=== PATIENT | female | born 2000 | race Caucasian/White ===

== ENCOUNTER 2019-07-01 15:23 | Outpatient (CLI) | payer BC, SELFPAY ==
--- NOTE | ~2019-07-01 | MR_ITS ---
EXAMINATION: MR brain/brain stem wo con EXAM DATE: 07/01/2019 16:04 INDICATION: Fainting. Syncope. New acute onset headaches. TECHNIQUE: Magnetic resonance imaging (MRI) of the brain/brain stem obtained without contrast. Zaheeritt al T1, axial diffusion, gradient echo (T2*), T1, T2, FLAIR sequences obtained. There is no prior st udy for comparison. FINDINGS: There are no areas of restricted diffusion to suggest acute infarction. There is no acute hemorrhage seen on the T2*, a hemosiderin sensitive sequence. No intraparenchymal brain mass. The ve ntricles are normal in size. There are no extra-axial collections. Flow voids are seen in the cereb ral arteries on the T2-weighted sequences consistent with their expected patency. The orbits are unr emarkable. Soft tissue is unremarkable. IMPRESSION: 1. Unremarkable brain MRI examination. Reviewed, dictated and finalized at location B. PILOT/NAVIGATOR/DDS OPERATOR
== END 2019-07-01 15:24 ==
DX: R51 Headache (principal)
CPT/HCPCS: 70551

== ENCOUNTER 2020-08-31 13:06 | Emergency (ER) | payer MEDICAID, SELFPAY ==
[2020-08-31 13:15] VITALS: BP 135/73; PULSE 85; RESP 20; TEMP 36.7; O2SAT 97
--- NOTE | 2020-08-31 13:24 | ED.GENADULT ---
HPI - General Adult General Chief complaint: Dizziness Stated complaint: low blood pressure Time Seen by Provider: 08/31/20 13:24 Related Data Allergies Allergy/AdvReac Type Severity Reaction Status Date / Time No Known Drug Allergies Allergy Verified 03/21/11 20:27
--- NOTE | 2020-08-31 13:33 | ED.DIZZY ---
HPI - Dizziness General Chief Complaint: Dizziness Stated Complaint: low blood pressure Time Seen by Provider: 08/31/20 13:24 Source: patient, family and RN notes reviewed Mode of arrival: ambulatory Limitations: no limitations History of Present Illness MD elicited complaint: dizziness and lightheadedness Onset (ago): day(s) (2) Timing: gradual onset and intermittent Severity: moderate Description: lightheadedness History of similar symptoms: Yes Exacerbating factors: nothing Relieving factors: lying down Associated symptoms: denies other symptoms Related Data Home Medications Medication Instructions Recorded Confirmed alprazolam [Xanax] 0.25 mg PO BID PRN 08/31/20 08/31/20 bupropion HCl [Wellbutrin SR] 100 mg PO DAILY 08/31/20 08/31/20 levonorgestrel-ethinyl estrad 1 tablet PO DAILY 08/31/20 08/31/20 [Altavera (28)] sertraline 100 mg PO DAILY 08/31/20 08/31/20 trazodone 100 mg PO HS PRN 08/31/20 08/31/20 Allergies Allergy/AdvReac Type Severity Reaction Status Date / Time No Known Drug Allergies Allergy Verified 03/21/11 20:27 Review of Systems Review of Systems: All systems reviewed & are unremarkable except as noted in HPI and below PMFSH Past Medical History Medical History (Updated 08/31/20 @ 14:53 by Seb Levin MD) Anxiety and depression Surgical History Surgical History (Updated 08/31/20 @ 13:44 by Seb Levin MD) No pertinent past surgical history Social History Social History (Updated 08/31/20 @ 13:43 by Seb Levin MD) Tobacco type: e-cigarettes/vaping Alcohol intake: current Alcohol use details: occasional Substance use: never Exam Const: General: healthy appearing, no acute distress and alert Nutritional Appearance: thin Orientation/consciousness: patient oriented x3 Other: female nurse in room during examination. HENMT: Head: normal to inspection Ears: external ear abnormal Face and sinus: normal facial exam Mouth: Yes moist mucous membranes Eyes: Conjunctivae: conjunctivae normal Pupils: Equal, round and reactive pupils present EOM: EOMs intact bilaterally Neck: Neck: normal visual inspection Resp: Effort & Inspection: normal respiratory effort Auscultation: clear to auscultation bilaterally Cardio: Rate: regular rate Rhythm: regular rhythm GI: GI Palp: Yes Soft to palpation and No Tenderness to palpation present (GI) Auscultation: normal bowel sounds Back/Spine/Pelvis: Cervical Spine: cervical ROM normal Thoracic/Lumbar Spine: thoraco-lumbar ROM normal Skin: General skin exam: normal color Rashes: no rashes Wounds: no wounds Neuro: General: patient oriented x3, moves all extremities, no meningeal signs and no focal motor deficits Speech: normal speech Gait exam (Neuro): Normal gait present Extrem: General: normal to inspection and no clubbing, cyanosis or edema Psych: Appearance: grossly normal and well kempt Mental Status: mental status grossly normal Affect: normal affect Attitude: cooperative Thought content: Yes Normal thought content present Course Vital Signs Vital signs: Vital Signs Temperature 36.7 C 08/31/20 13:15 Pulse Rate 85 08/31/20 13:15 Respiratory Rate 20 08/31/20 13:15 Blood Pressure 135/73 08/31/20 13:15 Pulse Oximetry 97 08/31/20 13:15 Temperature 36.7 C 08/31/20 13:15 Pulse Rate 85 08/31/20 13:15 Respiratory Rate 20 08/31/20 13:15 Blood Pressure 135/73 08/31/20 13:15 Pulse Oximetry 97 08/31/20 13:15 MDM - Dizziness Lab Data Result diagrams: 08/31/20 13:56 08/31/20 13:56 Labs: Lab Results 08/31/20 08/31/20 08/31/20 Range/Units 13:44 13:45 13:56 WBC 6.4 (4.8-10.8) K/mm3 RBC 4.35 (4.20-5.40) M/mm3 Hgb 12.6 (12.0-15.0) g/dL Hct 38.4 (35.0-49.0) % MCV 88.3 (78.0-102.0) fL MCH 29.0 (27.0-31.0) pg MCHC 32.8 (32.0-36.0) g/dL RDW 11.9 (11.6-14.4) % Plt Count 255 (150-420) K/mm3
[2020-08-31 13:54] LABS: Bilirubin Urine Negative (Negative); Blood Urine Negative (Negative); Color Urine Yellow (Yellow); Glucose Urine UA Negative (Negative); Ketones Urine Negative (Negative); Leukocyte Esterase Ur Negative LEU/UL (Negative); Nitrate Urine Negative (Negative); Protein Urine Negative (Negative); Specific Grav Ur >= 1.030 (1.010-1.020); Urobilinogen Urine 0.2 mg/dL (0.2-1.0)
[2020-08-31 13:58] LABS: Add Urine Microscopic? NO; Appearance Urine Clear (Clear)
[2020-08-31 13:59] LABS: Pregnancy On Board Control Positive; Urine Pregnancy Test Negative
[2020-08-31 14:01] LABS: Amphetamine Screen Urine Negative (Negative); Barbiturate Screen Urine Negative (Negative); Benzodiazepines Screen Urine Negative (Negative); Cannabinoid Screen Urine Negative (Negative); Cocaine Screen Urine Negative (Negative); Methadone Screen Urine Negative (Negative); Opiate Screen Urine Negative (Negative); Phencyclidine Screen Urine Negative (Negative)
[2020-08-31 14:02] LABS: Basophils Absolute Auto 0.02 K/mm3 (0.00-0.10); Basophils Percent Auto 0.3 % (0.0-1.0); Eosinophils Absolute Auto 0.11 K/mm3 (0.02-0.50); Eosinophils Percent Auto 1.7 % (1.0-6.0); Hematocrit 38.4 % (35.0-49.0); Hemoglobin 12.6 g/dL (12.0-15.0); Immature Granulocyte Absolute 0.01 K/mm3 (0.00-0.00); Immature Granulocyte Percent A 0.2 % (0.0-0.0); Lymphocytes Absolute Auto 1.69 K/mm3 (1.10-4.50); Lymphocytes Percent Auto 26.4 % (18.0-42.0); Mean Corpuscular HGB Conc 32.8 g/dL (32.0-36.0); Mean Corpuscular Volume 88.3 fL (78.0-102.0); Mean Platelet Volume 10.6 fl (9.2-11.8); Monocytes Absolute Auto 0.47 K/mm3 (0.10-0.90); Monocytes Percent Auto 7.3 % (2.0-11.0); Neutrophils Absolute Auto 4.1 K/mm3 (1.7-7.2); Neutrophils Percent Auto 64.1 % (50.0-70.0); Platelet Count Result 255 K/mm3 (150-420); Red Blood Count 4.35 M/mm3 (4.20-5.40); Red Cell Distribution Width 11.9 % (11.6-14.4); White Blood Count 6.4 K/mm3 (4.8-10.8)
[2020-08-31 14:24] LABS: Alanine Aminotransferase 14 U/L (14-59); Albumin Level 3.4 g/dL (3.4-5.0); Alkaline Phosphatase 60 U/L (46-116); Anion Gap 9 mmol/L (8-16); Aspartate Amino Transferase < 10 U/L (15-37); Bilirubin,Total 0.3 mg/dL (0.00-1.00); Blood Urea Nitrogen 10 mg/dL (7-18); Calcium 8.4 mg/dL (8.5-10.1); Carbon Dioxide 27 mmol/L (21-32); Chloride 104 mmol/L (98-108); Estimated Glomerular Filt Rate > 60; Glucose 87 mg/dL (70-99); Magnesium 1.9 mg/dL (1.8-2.4); Osmolality Calculated 288 mOsm/kg (285-295); Potassium 3.7 mmol/L (3.5-5.1); Sodium 140 mmol/L (136-145); Thyroid Stimulating Hormone 0.76 uIU/mL (0.36-3.74); Total Protein 6.7 g/dL (6.4-8.2)
[2020-08-31 14:58] VITALS: BP 113/75
== END 2020-08-31 15:00 | disposition home or self-care (01) ==
PROVIDERS: Emergency Provider Emergency Medicine; PCP Physician Assistant
DX: H81.10 Benign paroxysmal vertigo, unspecified ear (principal)
CPT/HCPCS: 36415; 80053; 80307; 81003; 81025; 83735; 84443; 85025; 99283

== ENCOUNTER 2020-10-03 21:22 | Emergency (ER) | payer MEDICAID, SELFPAY ==
[2020-10-03 22:00] VITALS: BP 114/83; PULSE 88; RESP 20; TEMP 37.1; O2SAT 98
--- NOTE | 2020-10-03 22:09 | ED.GENADULT ---
HPI - General Adult General Chief complaint: Extremity Injury, Lower Stated complaint: lower back pain Source: patient Mode of arrival: ambulatory Limitations: no limitations History of Present Illness HPI narrative: Kassi is a 20F with a PMH of anxiety/depression and previous hip/SI joint pain that came to the ED with instability and pain in her posterior hip. She works as a summons server. Lately with increased activity she has pain and it feels like it is popping in and out. She has went to he chiropractor but has not got much relief. No recent falls or trauma. Related Data Home Medications Medication Instructions Recorded Confirmed alprazolam [Xanax] 0.25 mg PO BID PRN 08/31/20 08/31/20 bupropion HCl [Wellbutrin SR] 100 mg PO DAILY 08/31/20 08/31/20 levonorgestrel-ethinyl estrad 1 tablet PO DAILY 08/31/20 08/31/20 [Altavera (28)] sertraline 100 mg PO DAILY 08/31/20 08/31/20 trazodone 100 mg PO HS PRN 08/31/20 08/31/20 Allergies Allergy/AdvReac Type Severity Reaction Status Date / Time No Known Drug Allergies Allergy Unknown Verified 10/03/20 22:10 Review of Systems Constitutional: Constitutional: Reports no additional constitutional complaints Eyes: Eyes: Reports no additional eye complaints ENT: Reports system reviewed and no additional complaints, except as documented Cardiovascular: Cardiovascular: Reports no additional cardiovascular complaints Respiratory: Respiratory: Reports no additional respiratory complaints Gastrointestinal: Gastrointestinal: Reports no additional gastrointestinal complaints Genitourinary: Genitourinary: Reports no additional female genitourinary complaints Musculoskeletal: Musculoskeletal: Reports as per HPI Integumentary/Breasts: Skin/Breast: Reports system reviewed and no additional complaints, except as docu Neurologic: Reports system reviewed and no additional complaints, except as documented Psychiatric: Psychiatric: Reports no additional psychiatric complaints Endocrine: Endocrine: Reports no additional endocrine complaints Hematologic/Lymphatic: Hematologic/Lymphatic: Reports no additional hematologic/lymphatic complaints Allergic/Immunologic: Allergic/Immunologic: Reports no additional allergic/immunologic complaints [facility] Past Medical History Medical History Anxiety and depression Surgical History Surgical History No pertinent past surgical history Social History Social History Tobacco type: e-cigarettes/vaping Alcohol intake: current Substance use: never Gender identity (if verbalized by the patient): Female Exam Const: General: no acute distress and alert Orientation/consciousness: patient oriented x3 Limitations: No altered mental status HENMT: Head: normal to inspection Other: atraumatic Eyes: Conjunctivae: conjunctivae normal Pupils: Equal, round and reactive pupils present Neck: Neck: normal visual inspection Chest: Chest palpation & inspection: normal inspection of the chest Resp: Effort & Inspection: normal respiratory effort, not labored and not tachypneic Cardio: Rate: regular rate Rhythm: regular rhythm Skin: General skin exam: normal color Rashes: no rashes Neuro: General: patient oriented x3 and moves all extremities Speech: normal speech Extrem: General: normal to inspection Other: 5/5 strength in all major muscle groups in the lower extremities bilaterally. +HAWK test. Significant TTP over the right SI joint Psych: Appearance: grossly normal Mental Status: mental status grossly normal Affect: normal affect Course Course Emergency Course: Given toradol for pain Vital Signs Vital signs: Vital Signs Temperature 98.8 F 10/03/20 22:00 Pulse Rate 88 10/03/20 22:00 Respiratory Rate 20 10/03/20 22:00 Blood Pressure 114/83 05
[2020-10-03] MEDS: KETOROLAC 30 MG/ML VIAL (*BKC) IM (22:15)
== END 2020-10-03 22:28 | disposition home or self-care (01) ==
PROVIDERS: Emergency Provider Family Medicine; PCP Family Medicine
DX: M53.3 Sacrococcygeal disorders, not elsewhere classified (principal)
CPT/HCPCS: 96372; 99283; J1885

== ENCOUNTER 2021-10-03 13:16 | Emergency (ER) | payer BC, MEDICAID, SELFPAY ==
[2021-10-03] VITALS (14 sets, daily range): BP systolic 131–141; BP diastolic 72–78; PULSE 79–95; RESP 15–25; TEMP 36.7; O2SAT 78–100
--- NOTE | 2021-10-03 13:30 | ECG_ITS ---
Measurements Intervals [place] Rate: 92 P: 70 IA: 123 QRS: 70 QRSD: 94 T: 61 QT: 358 QTc: 443 Interpretive Statements SINUS RHYTHM NORMAL ECG Electronically Signed On 10-03-2021 16:00:02 CDT by Garrett Millan D.O.
[2021-10-03 13:52] LABS: Basophils Percent Auto 0.3 % (0.2-1.2); Eosinophils Absolute Auto 0.1 K/mm3 (0-0.3); Eosinophils Percent Auto 1.2 % (0-4.4); Hemoglobin 13.6 g/dL (12.0-15.0); Immature Granulocyte Absolute 0.02 K/mm3 (0.00-0.031); Immature Granulocyte Percent A 0.3 % (0-0.5); Lymphocytes Absolute Auto 1.57 K/mm3 (0.9-3.2); Lymphocytes Percent Auto 21.2 % (18.3-44.2); Mean Corpuscular HGB Conc 32.4 g/dl (32-36); Mean Corpuscular Hemoglobin 28.9 pg (26-34); Mean Corpuscular Volume 89.4 fl (80-100); Mean Platelet Volume 10.3 fl (7.4-10.4); Monocytes Absolute Auto 0.7 K/mm3 (0.1-0.6); Monocytes Percent Auto 9.7 % (2.6-8.5); Neutrophils Percent Auto 67.3 % (45.5-73.1); Platelet Count Result 286 k/mm3 (150-375); Red Cell Distribution Width 12.5 % (11.5-14.5); White Blood Count 7.4 K/mm3 (4.5-10.0)
[2021-10-03 14:01] LABS: Alanine Aminotransferase 14 U/L (6-35); Albumin Level 4.5 g/dL (3.5-5.1); Alkaline Phosphatase 53 U/L (38-126); Anion Gap 10 mmol/L (8-16); Aspartate Amino Transferase 23 U/L (14-36); Bilirubin,Total 0.4 mg/dL (0.2-1.3); Blood Urea Nitrogen 12 mg/dL (7-17); Calcium 8.9 mg/dL (8.4-10.2); Carbon Dioxide 23 mmol/L (22-30); Chloride 104 mmol/L (98-107); Estimated CRCL calculation 146 ml/min; Estimated Glomerular Filt Rate > 60; Glucose 97 mg/dL (65-110); Sodium 137 mmol/L (137-145)
[2021-10-03 14:08] LABS: Add Urine Microscopic? NO; Appearance Urine Clear (Clear); Bilirubin Urine Negative (Negative); Blood Urine Negative (Negative); Color Urine Yellow (Yellow); Glucose Urine UA Negative (Negative); Ketones Urine Negative (Negative); Leukocyte Esterase Ur Negative LEU/UL (Negative); Nitrate Urine Negative (Negative); Protein Urine Negative (Negative); Specific Grav Ur <= 1.005 (1.001-1.035); Urobilinogen Urine 0.2 mg/dL (<2.0)
--- NOTE | 2021-10-03 14:15 | ED.SYNCOPE ---
HPI - Syncope General Chief Complaint: Syncope Stated Complaint: syncope Time Seen by Provider: 10/03/21 13:32 History of Present Illness HPI narrative: 21-year-old female presents to the emergency room following a syncopal event. Patient states that she started taking amlodipine this morning for patient denies any illicit drug use. Denies fever. Related Data Home Medications Medication Instructions Recorded Confirmed alprazolam [Xanax] 0.5 mg PO BID PRN 08/31/20 10/03/20 bupropion HCl [Wellbutrin SR] 150 mg PO DAILY 08/31/20 10/03/20 levonorgestrel-ethinyl estrad 1 tablet PO DAILY 08/31/20 10/03/20 [Altavera (28)] sertraline [Zoloft] 100 mg PO DAILY 08/31/20 10/03/20 trazodone 100 mg PO HS PRN 08/31/20 10/03/20 Allergies Allergy/AdvReac Type Severity Reaction Status Date / Time No Known Drug Allergies Allergy Unknown Verified 10/03/20 22:10 Review of Systems Review of Systems: CONSTITUTIONAL: Denies fever, chills, or sweats. EYES: Denies visual changes, redness, or discharge. ENT: Denies rhinorrhea, congestion, sore throat, or otalgia. CARDIOVASCULAR: Denies chest pain, palpitations, or edema. RESPIRATORY: Denies cough or dyspnea. GASTROINTESTINAL: Denies abdominal pain, nausea, vomiting, or diarrhea. GENITOURINARY: Denies dysuria or hematuria. SKIN: Denies rash or itching. MUSCULOSKELETAL: Denies back pain, joint pain, or myalgia. NEUROLOGIC: Denies headache, numbness, dizziness, or weakness. PSYCHIATRIC: Denies anxiety or depression. [facility] Past Medical History Medical History Anxiety and depression Surgical History Surgical History No pertinent past surgical history Social History Social History Tobacco type: e-cigarettes/vaping Alcohol intake: current Alcohol use details: occasional Substance use: never Gender identity (if verbalized by the patient): Female Exam Narrative: GENERAL: Well-appearing, well-nourished, and in no acute distress. HEAD: Normocephalic, atraumatic. EYES: PERRLA and EOMI. NECK: Supple. No adenopathy or masses. No carotid bruits or JVD CHEST: Clear to auscultation. No respiratory distress. No wheezes rales or rhonchi HEART: Regular rate and rhythm. No murmur heard. Normal peripheral pulses. ABDOMEN: Soft, nontender, nondistended, normal active bowel sounds. EXTREMITIES: Normal range of motion. No edema. SKIN: Warm, dry, no rash. NEURO: No focal deficits. Alert and oriented x3. PSYCH: Normal mood and affect. Course Vital Signs Vital signs: Vital Signs Temperature 36.7 C 10/03/21 13:26 Pulse Rate 95 10/03/21 13:26 Respiratory Rate 20 10/03/21 13:26 Blood Pressure 131/78 10/03/21 13:26 Pulse Oximetry 100 10/03/21 13:26 Temperature 36.7 C 10/03/21 13:26 Pulse Rate 95 10/03/21 13:26 Respiratory Rate 20 10/03/21 13:26 Blood Pressure 131/78 10/03/21 13:26 Pulse Oximetry 100 10/03/21 13:26 MDM - Syncope MDM Narrative Medical decision making narrative: 21-year-old female presented to the emergency room following a syncopal event. Patient states that she began taking amlodipine this morning for Raynaud's phenomenon. Patient states that she did not monitor her blood pressure before and after starting the medication. CBC and C MP unremarkable. Troponin TSH within normal limits. Urine shows no evidence of urinary tract infection. EKG showed normal sinus rhythm with no ectopy. Patient likely experiencing adverse reaction to amlodipine Medical Records Attestation: I reviewed the patient's medical records. Lab Data Attestation: I reviewed the patient's lab results. Result diagrams: 10/03/21 11:15 10/03/21 11:15 Labs: Lab Results 10/03/21 10/03/21 10/03/21 Range/Units 11:15 11:15 14:00 WBC 7.4 (4.5-10.0) K/mm3 RBC
[2021-10-03] MEDS: SODIUM CHLORIDE 0.9% IV 1,000 ML 999 ML IV CONT (14:20)
[2021-10-03 14:24] LABS: Amphetamine Screen Urine Negative (Negative); Barbiturate Screen Urine Negative (Negative); Benzodiazepines Screen Urine Negative (Negative); Cannabinoid Screen Urine Positive (Negative); Cocaine Screen Urine Negative (Negative); Methadone Screen Urine Negative (Negative); Opiate Screen Urine Negative (Negative); Phencyclidine Screen Urine Negative (Negative)
[2021-10-03 14:33] LABS: CRP < 0.5 mg/dL (<1.0)
[2021-10-03 15:02] LABS: Thyroid Stimulating Hormone 0.596 uIU/mL (0.465-4.680)
== END 2021-10-03 15:50 | disposition home or self-care (01) ==
PROVIDERS: Emergency Medicine; Emergency Provider Nurse Practitioner Family; PCP Family Medicine
DX: R55 Syncope and collapse (principal); I73.00 Raynaud's syndrome without gangrene; F41.9 Anxiety disorder, unspecified; F32.A Depression, unspecified; F17.290 Nicotine dependence, other tobacco product, uncomplicated; T46.1X5A Adverse effect of calcium-channel blockers, initial encounter
CPT/HCPCS: 36415; 80053; 80307; 81003; 81025; 84443; 85025; 86140; 93005; 96360; 99284; J7030

== ENCOUNTER 2022-08-02 21:58 | Emergency (ER) | payer BC, MEDICAID, SELFPAY ==
--- NOTE | ~2022-08-02 | XR_ITS ---
XR foot LT 2V 08/02/2022 22:25 INDICATION: Pain in left first toe PROCEDURE: 2 views left foot COMPARISON: No prior studies for comparison. FINDINGS: Fracture, dislocation or subluxation is not identified. Lisfranc joint intact. The soft tis sues appear within normal limits. No foreign bodies are identified. IMPRESSION: 1: NO ACUTE BONE OR JOINT ABNORMALITY IDENTIFIED. Reviewed, dictated and finalized at location A.
[2022-08-02 22:01] VITALS: BP 132/80; PULSE 100; RESP 20; TEMP 37; O2SAT 100
--- NOTE | 2022-08-02 22:12 | ED.LOWEXIN ---
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 complaint: foot injury Onset (ago): hour(s) Place: school Severity: moderate Severity scale (1-10): 6 Relieving factors: nothing Exacerbating factors: movement and palpation Context: direct blow Related Data Home Medications Medication Instructions Recorded Confirmed alprazolam 0.25 mg tablet (Xanax) 0.5 mg PO BID PRN Anxiety 08/31/20 08/02/22 bupropion HCl 100 mg tablet,12 hr 150 mg PO DAILY 08/31/20 08/02/22 sustained-release (Wellbutrin SR) levonorgestrel 0.15 mg-ethinyl 1 tablet PO DAILY 08/31/20 08/02/22 estradiol 0.03 mg tablet (Altavera (28)) sertraline 100 mg tablet (Zoloft) 100 mg PO DAILY 08/31/20 08/02/22 trazodone 100 mg tablet 100 mg PO HS PRN Sleep 08/31/20 08/02/22 Allergies Allergy/AdvReac Type Severity Reaction Status Date / Time No Known Drug Allergies Allergy Unknown Verified 10/03/20 22:10 Review of Systems Review of Systems: All systems reviewed & are unremarkable except as noted in HPI and below PMFSH Past Medical History Medical History Anxiety and depression Surgical History Surgical History No pertinent past surgical history Social History Social History Tobacco type: e-cigarettes/vaping Alcohol intake: current Alcohol use details: occasional Substance use: never Gender identity (if verbalized by the patient): Female Exam Const: General: healthy appearing Nutritional Appearance: well nourished Orientation/consciousness: patient oriented x3 Limitations: no limitations HENMT: Head: normal to inspection Face and sinus: normal facial exam Eyes: Conjunctivae: conjunctivae normal Pupils: Equal, round and reactive pupils present EOM: EOMs intact bilaterally Neck: Neck: normal visual inspection Chest: Chest palpation & inspection: normal inspection of the chest Resp: Effort & Inspection: normal respiratory effort Auscultation: clear to auscultation bilaterally Cardio: Rate: regular rate Rhythm: regular rhythm GI: GI Palp: Yes Soft to palpation Skin: Wounds: wounds noted Other: Erythema around bilateral large toe nails Neuro: General: patient oriented x3 Cranial nerves: Yes Nystagmus not present Extrem: General: normal to inspection Psych: Mental Status: mental status grossly normal Affect: normal affect Course Course Emergency Course: X rays reviewed, patient was given a shot of 60mg IM Toradol antibiotic by mouth and triple antibiotic ointment were given. Vital Signs Vital signs: Vital Signs Temperature 37.0 C 08/02/22 22:01 Pulse Rate 100 08/02/22 22:01 Respiratory Rate 20 08/02/22 22:01 Blood Pressure 132/80 08/02/22 22:01 Pulse Oximetry 100 08/02/22 22:01 Oxygen Delivery Room Air 08/02/22 22:01 Temperature 37.0 C 08/02/22 22:01 Pulse Rate 100 08/02/22 22:01 Respiratory Rate 20 08/02/22 22:01 Blood Pressure 132/80 08/02/22 22:01 Pulse Oximetry 100 08/02/22 22:01 Oxygen Delivery Room Air 08/02/22 22:01 Critical Care Time Critical Care Time Critical Care Time: No Discharge Plan Discharge Clinical Impression: Paronychia Celluli
[2022-08-02] MEDS: NEOMYCIN/POLYMYXIN/BACITRACIN OINTMENT PACKET 1 PACKET TOPICAL (22:20)
[2022-08-02] MEDS: KETOROLAC (*BKC) 60 MG/2 ML VIAL IM (22:20)
[2022-08-02] MEDS: AMOXICILLIN 500 MG CAPSULE PO (22:20)
[2022-08-02 22:29] VITALS: BP 121/90; PULSE 90; RESP 20; TEMP 37.2; O2SAT 100
== END 2022-08-02 22:31 | disposition home or self-care (01) ==
PROVIDERS: Emergency Provider Emergency Medicine; PCP Family Medicine
DX: L03.032 Cellulitis of left toe (principal); F41.9 Anxiety disorder, unspecified; F32.A Depression, unspecified; F17.290 Nicotine dependence, other tobacco product, uncomplicated
CPT/HCPCS: 73620; 96372; 99283; A9270; J1885

== ENCOUNTER 2022-09-30 08:55 | Outpatient (RCR) | payer MEDICAID, SELFPAY ==
--- NOTE | 2022-09-30 13:06 | PTOPEVAL1 ---
Assessment and note entered by Yon Ibanez Evaluation Information Assessment Status Evaluation Diagnosis chronic bilateral hip pain Onset 09/25/22 Subjective Information Pt. reports that she has been having on/off hip pain for a couple years. She reports that she has recently been diagnosed with ADRIANO. She reports that pain is worst in the morning. She reports that she will pop her hips sitting at the EOB to start each morning. She describes per pain in the area of the bilateral groin and the low back. She states that pain limits her ability to stand for long periods of time. She reports that sitting on harder surfaces with also increase her pain. She states that walking is ok, but pain will increase after an hour or two. She reports that pain will occasionally wake her at night. She reports that her goal for therapy is to decrease her pain with prolonged standing activities. Reported Pain Level Pain Score 5,7: Self Report Assessment PT Clinical Summary Pt. is a 22 year old female who enters the clinic due to bilateral hip pain. She presents with impaired gait, impaired postural awareness, impaired l.e. strength, impaired abdominal strength and pain. Continued skilled PT is indicated in order to improve these areas to allow the pt. improved comfort with IADL performance. Plan of Care Interventions Electrical Stimulation,Hot Pack/Cold Pack,Manual Therapy,Neuro Re-education,Therapeutic Activities, Therapeutic Exercise PT Services Indicated Yes Treatment Frequency and 1x/week x 8 visits Duration These treatments will address the objective and functional deficits as defined above. The patient will be advanced safely and appropriately in order for the patient to progress towards his/her prior level of function. Additional exercises will be introduced and as well as a comprehensive home exercise program upon discharge, if needed, ?to ensure carryover of functional gains achieved in the clinic. This treatment plan has been reviewed and agreement upon by the patient.
== END 2022-11-04 20:00 | disposition home or self-care (01) ==
LOC: CHSPT 08:55
DX: M25.551 Pain in right hip (principal); M25.552 Pain in left hip; G89.29 Other chronic pain
CPT/HCPCS: 97014; 97110; 97112; 97140; 97161; G0283

== ENCOUNTER 2023-10-26 15:24 | Emergency (ER) | payer OTHER, SELFPAY ==
--- NOTE | ~2023-10-26 | XR_ITS ---
XR hip RT min 2V Ordering provider: Mgadaleno Barrios APRN History: . 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 Comparison: None. FINDINGS: BONES: No acute fracture or dislocation. HIP JOINT SPACES: Normal. SACROILIAC JOINT SPACES: The sacroiliac joint spaces are normal. PUBIC SYMPHYSIS: Normal. SOFT TISSUES: Normal. IMPRESSION: No acute osseous abnormality right hip. Reviewed, dictated and finalized at location A.
[2023-10-26 15:26] VITALS: BP 131/80; PULSE 104; RESP 18; TEMP 36.8; O2SAT 100
--- NOTE | 2023-10-26 16:33 | ED.BACK ---
HPI - Back Pain/Injury General Chief Complaint: Back Pain/Injury Stated Complaint: lower R sided back pain Time Seen by Provider: 10/26/23 16:34 Focused HPI: Tay is a 23-year-old female patient presenting to the emergency room today with complaints of severe right lateral/posterior hip pain since 08:30 this morning. She reports that she was lifting a mattress. Had taken Tylenol at 11:30 a.m. this morning. States that she cannot find a comfortable position to be in General: Well-developed, well nourished, in no apparent distress Head: Normocephalic, atraumatic. Cardio: Regular rate and rhythm, s1 and s2 normal, no murmur appreciated. Resp: Clear to auscultation bilaterally, no rhonchi, rales, wheezing or rubs. Musculoskeletal: No deformity, tender to palpation over the posterior and lateral right hip, limited range of motion due to pain, muscle strength strong and equal, peripheral pulse strong, no edema, no cyanosis, normal gait and station Patient screened in triage and initial orders placed. Additional care and disposition to be based upon diagnostic testing and treatment. Source: patient Mode of arrival: ambulatory Limitations: no limitations Related Data Home Medications Medication Instructions Recorded Confirmed alprazolam 0.25 mg tablet (Xanax) 0.5 mg PO BID PRN Anxiety 08/31/20 08/02/22 bupropion HCl 100 mg tablet,12 hr 150 mg PO DAILY 08/31/20 08/02/22 sustained-release (Wellbutrin SR) levonorgestrel 0.15 mg-ethinyl 1 tablet PO DAILY 08/31/20 08/02/22 estradiol 0.03 mg tablet (Altavera (28)) sertraline 100 mg tablet (Zoloft) 100 mg PO DAILY 08/31/20 08/02/22 trazodone 100 mg tablet 100 mg PO HS PRN Sleep 08/31/20 08/02/22 Allergies Allergy/AdvReac Type Severity Reaction Status Date / Time No Known Drug Allergies Allergy Unknown Verified 10/03/20 22:10 Review of Systems Review of Systems: Pertinent positives per HPI. Patient denies any fever, chills, rash, headache, visual changes, dizziness, cough, runny nose, sore throat, shortness of breath, chest pain, palpitations, nausea, vomiting, diarrhea, constipation, abdominal pain, or any urinary issues. [facility] Past Medical History Medical History Anxiety and depression Surgical History Surgical History No pertinent past surgical history Social History Social History Tobacco type: e-cigarettes/vaping Alcohol intake: current Alcohol use details: occasional Substance use: never Gender identity (if verbalized by the patient): Female Comments At the time of my signature, I reviewed and agree with the nursing past medical, surgical, social, and family history. There is no relevant family history pertinent to the patient complaint. Exam Narrative: General: Well-developed, well nourished, in no apparent distress Head: Normocephalic, atraumatic. Cardio: Regular rate and rhythm, s1 and s2 normal, no murmur appreciated. Resp: Clear to auscultation bilaterally, no rhonchi, rales, wheezing or rubs. Musculoskeletal: No deformity, tender to palpation over the posterior and lateral right hip, limited range of motion due to pain, muscle strength strong and equal, peripheral pulse strong, no edema, no cyanosis, normal gait and station Course Course Emergency Course: Portions of this record may have been created with voice recognition software. Vital Signs Vital signs: Vital Signs Temperature 36.8 C 10/26/23 15: Pulse Rate 104 H 10/26/23 15:26 Respiratory Rate 18 10/26/23 15: Blood Pressure 131/80 10/26/23 15:26 Pulse Oximetry 100 10/26/23 15:26 Oxygen Delivery Room Air 10/26/23 15:26 Temperature 36.8 C 10/26/23 15: Pulse Rate 104 H 10/26/23 15:26 Respiratory Rate 18 10/26/23 15:26 Blood Pressure 131/80
[2023-10-26] MEDS: HYDROcodone/acetaminophen (*CRX) 7.5-325 MG TABLET 1 TAB PO (17:48)
== END 2023-10-26 17:54 | disposition home or self-care (01) ==
PROVIDERS: Emergency Provider Nurse Practitioner Family
DX: M25.551 Pain in right hip (principal); F41.9 Anxiety disorder, unspecified; F32.A Depression, unspecified; F17.290 Nicotine dependence, other tobacco product, uncomplicated; Z79.899 Other long term (current) drug therapy
CPT/HCPCS: 73502; 99283; A9270

== ENCOUNTER 2024-02-24 10:18 | Outpatient (RCR) | payer OTHER, SELFPAY ==
--- NOTE | 2024-02-24 11:03 | OPREHPOC ---
Outpatient Therapy Plan of Care This is a Multidisciplinary Plan of Care that may contain components documented by all disciplines (PT, OT, and ST.) PT Problem 1 PT Problem #1 Knowledge Deficit PT Goal 1 Goal / Goal Update 1. independent and compliant with HEP Target Visit 4 PT Problem 2 PT Problem #2 Pain PT Goal 1 Goal / Goal Update 1. pain at worst to be no more than 2/10 in the R hip. Target Visit 12 PT Problem 3 PT Problem #3 Impaired Strength PT Goal 1 Goal / Goal Update 1. patient to perform SLR of the R hip to 75 degrees hip flexion without extension lag 2. 4/5 R hip flex strength 3. 4/5 R hip abd strength Target Visit 12 PT Problem 4 PT Problem #4 Impaired Functional Mobil PT Goal 1 Goal / Goal Update 1. patient to ambulate with no ad and with equal stance time and weight bearing bilaterally 2. LEFS to display 60% or less functional deficits 3. patient to display 30 degrees or better R hip active ER 4. patient to display 20 degrees or better R hip active IR Target Visit 8
--- NOTE | 2024-02-24 11:03 | PTOPEVAL1 ---
Assessment and note entered by JT File, PT Evaluation Information Assessment Status Evaluation Diagnosis s/p R hip labral repair ICD-10 Condition Codes (PT) Z47.89 Onset 02/17/24 Subjective Information patient reports she injured the R hip earlier this year. she reports back in October she was unable to bear weight on the R LE. she had surgery on . she reports she is eventually going to need the same surgery on the L hip. she is 1 week post op today. she would like to get back to walking without crutches BENITA. she reports she has not been able to get comfortable sleeping due to restrictions from the R hip and pain in the L hip. she reports she does not have a CPM at home. Reported Pain Level Pain Score 4: Self Report Assessment PT Clinical Summary ms. reese is a 23 yo woman who presents to skilled PT services for evaluation and treatment s /p R hip labral repair. she presents today with pain, deficits in rom, weakness, and decreased weight bearing/ambulation mechanics. she would benefit from continued skilled PT to improve her objective/functional deficits and progress towards a return to her prior level functional activity performance and quality of life. she will be progressed and educated within her post operative protocol. Plan of Care Interventions Electrical Stimulation,Gait Training,Hot Pack/Cold Pack,Manual Therapy,Neuro Re-education,Patient/ Caregiver Educati,Therapeutic Activities, Therapeutic Exercise PT Services Indicated Yes Treatment Frequency and 2x weekly for 8 visits Duration These treatments will address the objective and functional deficits as defined above. The patient will be advanced safely and appropriately in order for the patient to progress towards his/her prior level of function. Additional exercises will be introduced and as well as a comprehensive home exercise program upon discharge, if needed, ?to ensure carryover of functional gains achieved in the clinic. This treatment plan has been reviewed and agreement upon by the patient.
--- NOTE | 2024-03-18 08:32 | PCPTNOTE ---
Cancelled session due to illness.
--- NOTE | 2024-03-31 09:05 | PCPTNOTE ---
Patient called & cancelled scheduled appointment this date due to illness.
--- NOTE | 2024-04-20 13:47 | OPREHPOC ---
Outpatient Therapy Plan of Care This is a Multidisciplinary Plan of Care that may contain components documented by all disciplines (PT, OT, and ST.) PT Problem 1 PT Problem #1 Knowledge Deficit PT Goal 1 Goal / Goal Update 1. independent and compliant with HEP Target Visit 4 Progress Met PT Problem 2 PT Problem #2 Pain PT Goal 1 Goal / Goal Update 1. pain at worst to be no more than 2/10 in the R hip. Target Visit 14 Progress Not Met PT Problem 3 PT Problem #3 Impaired Strength PT Goal 1 Goal / Goal Update 1. patient to perform SLR of the R hip to 75 degrees hip flexion without extension lag. met 2. 4/5 R hip flex strength 3. 4/5 R hip abd strength. met Target Visit 12 Progress Partially Met PT Goal 2 Goal / Goal Update 1. R hip strength to be 4+/5 or better overall Target Visit 14 PT Problem 4 PT Problem #4 Impaired Functional Mobil PT Goal 1 Goal / Goal Update 1. patient to ambulate with no ad and with equal stance time and weight bearing bilaterally. met 2. LEFS to display 60% or less functional deficits . met 3. patient to display 30 degrees or better R hip active ER. met 4. patient to display 20 degrees or better R hip active IR. met Target Visit 8 Progress Met PT Problem 5 PT Problem #5 Impaired Functional Mobil PT Goal 1 Goal / Goal Update 1. patient to complete squat and lunge safely with good mechanics and no pain. 2. patient to be able to jog in straight line without pain 3. LEFS to display 10% or less functional deficits Target Visit 14
--- NOTE | 2024-04-20 13:47 | PTOPREEVAL ---
Assessment and note entered by JT File, PT Evaluation Information Assessment Status Re-evaluation Diagnosis s/p R hip labral repair ICD-10 Condition Codes (PT) Z47.89 Onset 02/17/24 Subjective Information patient reports she feels good today. overall, she reports the hip is much better and she has little pain in it. however, she reports from time to time she will forget about the R hip and rotate it too far or too quickly and cause a brief on instance of increased R hip pain. Reported Pain Level Pain Score 2: Self Report Assessment PT Clinical Summary mrs. reese presents to skilled PT for her 10th skilled therapy visit today and 9 weeks post R hip labral repair. she is now in phase 3 of her post operative protocol. she presents with improved rom , strength, and gait mechanics. she has made good progress towards goals, but would benefit from continued skilled PT to achieve remaining advanced goals to return to prior level functional activity performance/quality of life and prepare for surgery to the L hip. Plan of Care Interventions Electrical Stimulation,Gait Training,Hot Pack/Cold Pack,Manual Therapy,Neuro Re-education,Patient/ Caregiver Educati,Therapeutic Activities, Therapeutic Exercise PT Services Indicated Yes Treatment Frequency and continue skilled PT 1x weekly for 4 more visits Duration These treatments will address the objective and functional deficits as defined above. The patient will be advanced safely and appropriately in order for the patient to progress towards his/her prior level of function. Additional exercises will be introduced and as well as a comprehensive home exercise program upon discharge, if needed, ?to ensure carryover of functional gains achieved in the clinic. This treatment plan has been reviewed and agreement upon by the patient.
--- NOTE | 2024-04-27 13:14 | PCPTNOTE ---
Patient called & cancelled scheduled appointment this date due to [something came up at home]
== END 2024-05-24 23:59 | disposition home or self-care (01) ==
LOC: CHSPT 10:18
DX: M25.551 Pain in right hip (principal)
CPT/HCPCS: 97110; 97112; 97116; 97140; 97161

== ENCOUNTER 2024-03-07 10:01 | Outpatient (CLI) | payer OTHER, SELFPAY ==
--- NOTE | ~2024-03-07 | XR_ITS ---
AP view of the pelvis and AP and lateral views of the right hip Clinical history: Orthopedic aftercare COMPARISON: 10/26/2023 Findings: No acute fracture or dislocation is seen. Osseous alignment is anatomic. Bilateral hip and SI joint spaces are preserved. Soft tissues are unremarkable. Impression: No significant abnormality is seen. Reviewed, dictated and finalized at [facility]. Impression: No significant abnormality is seen.
== END 2024-03-07 10:02 | disposition home or self-care (01) ==
DX: Z47.89 Encounter for other orthopedic aftercare (principal)
CPT/HCPCS: 73502

== ENCOUNTER 2025-01-17 13:36 | Outpatient (RCR) | payer OTHER, SELFPAY ==
--- NOTE | 2025-01-17 14:46 | OPREHPOC ---
Outpatient Therapy Plan of Care This is a Multidisciplinary Plan of Care that may contain components documented by all disciplines (PT, OT, and ST.) PT Problem 1 PT Problem #1 Knowledge Deficit PT Goal 1 Goal / Goal Update independent and compliant with HEP Target Visit 6 PT Problem 2 PT Problem #2 Pain PT Goal 1 Goal / Goal Update patient to report no pain in the L hip Target Visit 12 PT Problem 3 PT Problem #3 Impaired Range of Motion PT Goal 1 Goal / Goal Update 120 degrees or better active L hip flex 50 degrees or better active L hip abd 65 degrees or better active L hip ER Target Visit 12 PT Problem 4 PT Problem #4 Impaired Strength PT Goal 1 Goal / Goal Update 4+/5 or better bilateral hip strength 5/5 bilateral knee strength Target Visit 12 PT Problem 5 PT Problem #5 Impaired Functional Mobility PT Goal 1 Goal / Goal Update normal gait mechanics without AD ambulation up and down steps with reciprocal mechanics patient to return to safe squat and lift mechanics to return to prior level activities and work less than 25% functional deficits per the LEFS Target Visit 12
--- NOTE | 2025-01-17 14:47 | PTOPEVAL1 ---
Assessment and note entered by JT File, PT Evaluation Information Assessment Status Evaluation Diagnosis s/p L hip labral repair ICD-10 Condition Codes (PT) Pain in left hip M25.552,Encounter for other orthopedic aftercare Z47.89 Onset 01/10/25 Subjective Information patient reports she is coming to skilled PT for rehab following L hip labral repair. she reports she is limited to 20lbs weight bearing on the L LE . she reports she is limited to 90 degrees hip flexion until she is off crutches. she reports she is wanting to be able to return to walking without a limp or pain, and return to being able to tolerate work. 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 Reported Pain Level Pain Score 2: Self Report Assessment PT Clinical Summary mrs. reese is a 24 yo woman who presents to skilled PT services for evaluation and treatment following L hip arthroscopic labral repair. she is limited to rom only at this time with minimal WB on the L LE. she would benefit from continued skilled PT to address her objective/functional deficits and progress per her post op protocol to achieve her prior level functional activity performance/quality of life. Plan of Care Interventions Gait Training,Hot Pack/Cold Pack,Manual Therapy, Neuro Re-education,Patient/Caregiver Education, Therapeutic Activities,Therapeutic Exercise PT Services Indicated Yes Treatment Frequency and 3x weekly for 12 visits Duration These treatments will address the objective and functional deficits as defined above. The patient will be advanced safely and appropriately in order for the patient to progress towards his/her prior level of function. Additional exercises will be introduced and as well as a comprehensive home exercise program upon discharge, if needed, ?to ensure carryover of functional gains achieved in the clinic. This treatment plan has been reviewed and agreement upon by the patient.
--- NOTE | 2025-02-08 12:06 | OPREHPOC ---
Outpatient Therapy Plan of Care This is a Multidisciplinary Plan of Care that may contain components documented by all disciplines (PT, OT, and ST.) PT Problem 1 PT Problem #1 Knowledge Deficit PT Goal 1 Goal / Goal Update independent and compliant with HEP Target Visit 6 Progress Met PT Problem 2 PT Problem #2 Pain PT Goal 1 Goal / Goal Update patient to report no pain in the L hip Target Visit 12 Progress Not Met PT Problem 3 PT Problem #3 Impaired Range of Motion PT Goal 1 Goal / Goal Update 120 degrees or better active L hip flex. met 50 degrees or better active L hip abd 65 degrees or better active L hip ER. met Target Visit 12 Progress Partially Met PT Problem 4 PT Problem #4 Impaired Strength PT Goal 1 Goal / Goal Update 4+/5 or better bilateral hip strength. met 5/5 bilateral knee strength Target Visit 12 Progress Partially Met PT Problem 5 PT Problem #5 Impaired Functional Mobility PT Goal 1 Goal / Goal Update normal gait mechanics without AD ambulation up and down steps with reciprocal mechanics patient to return to safe squat and lift mechanics to return to prior level activities and work less than 25% functional deficits per the LEFS Target Visit 12 Progress Not Met
--- NOTE | 2025-02-08 12:06 | PTOPPROGNS ---
Assessment and note entered by JT File, PT Evaluation Information Assessment Status Progress Diagnosis s/p L hip labral repair ICD-10 Condition Codes (PT) Pain in left hip M25.552,Encounter for other orthopedic aftercare Z47.89 Onset 01/10/25 Subjective Information patient reports she has felt much better lately. she reports her pain has been lower. however, she reports today she is a bit more sore that the past few days. she is not sure why her symptoms have changed some. Assessment PT Clinical Summary ms. reese presents to skilled PT services for her 10th skilled PT visit. she displays good progress towards goals, and progression in accordance with her post op protocol. continued skilled PT is indicated to continue to improve her objective/ functional deficits and return her to her prior level functional activity performance/quality of life. Plan of Care Interventions Gait Training,Hot Pack/Cold Pack,Manual Therapy, Neuro Re-education,Patient/Caregiver Education, Therapeutic Activities,Therapeutic Exercise PT Services Indicated Yes Treatment Frequency and continue per initial POC Duration These treatments will address the objective and functional deficits as defined above. The patient will be advanced safely and appropriately in order for the patient to progress towards his/her prior level of function. Additional exercises will be introduced and as well as a comprehensive home exercise program upon discharge, if needed, ?to ensure carryover of functional gains achieved in the clinic. This treatment plan has been reviewed and agreement upon by the patient.
--- NOTE | 2025-02-13 12:09 | PTOPEVAL1 ---
Assessment and note entered by JT File, PT Evaluation Information Assessment Status Re-evaluation Diagnosis s/p L hip labral repair ICD-10 Condition Codes (PT) Pain in left hip M25.552,Encounter for other orthopedic aftercare Z47.89 Onset 01/10/25 Subjective Information patient reports she has been feeling much better lately. she reports she barely has any pain in the L hip. she reports deep flexion of the hip and rotation still bother it the most. she reports she has been compliant with her HEP at home. she reports she is hoping to return to work next week. Reported Pain Level Pain Score 1: Self Report Assessment PT Clinical Summary ms. reese presents to skilled PT for her 12th skilled therapy visit with continued improvement and progress towards goals. she now ambulates with normal gait mechanics and up and down steps reciprocally. she would benefit from continued skilled PT to further improve her L hip strength, squat mechanics, functional lifting, and stability of the hip to return to prior level functional activity performance. Plan of Care Interventions Gait Training,Hot Pack/Cold Pack,Manual Therapy, Neuro Re-education,Patient/Caregiver Education, Therapeutic Activities,Therapeutic Exercise PT Services Indicated Yes Treatment Frequency and continue skilled PT 1x weekly for 4 more visits Duration These treatments will address the objective and functional deficits as defined above. The patient will be advanced safely and appropriately in order for the patient to progress towards his/her prior level of function. Additional exercises will be introduced and as well as a comprehensive home exercise program upon discharge, if needed, ?to ensure carryover of functional gains achieved in the clinic. This treatment plan has been reviewed and agreement upon by the patient.
--- NOTE | 2025-02-27 13:54 | OPREHPOC ---
Outpatient Therapy Plan of Care This is a Multidisciplinary Plan of Care that may contain components documented by all disciplines (PT, OT, and ST.) PT Problem 1 PT Problem #1 Knowledge Deficit PT Goal 1 Goal / Goal Update independent and compliant with HEP Target Visit 6 Progress Met PT Problem 2 PT Problem #2 Pain PT Goal 1 Goal / Goal Update patient to report no pain in the L hip Target Visit 16 Progress Partially Met PT Problem 3 PT Problem #3 Impaired Range of Motion PT Goal 1 Goal / Goal Update 120 degrees or better active L hip flex. met 50 degrees or better active L hip abd. met 65 degrees or better active L hip ER. met Target Visit 12 Progress Met PT Problem 4 PT Problem #4 Impaired Strength PT Goal 1 Goal / Goal Update 4+/5 or better bilateral hip strength. met 5/5 bilateral knee strength. met Target Visit 12 Progress Met PT Goal 2 Goal / Goal Update 5/5 L hip strength Target Visit 16 PT Problem 5 PT Problem #5 Impaired Functional Mobility PT Goal 1 Goal / Goal Update normal gait mechanics without AD. met ambulation up and down steps with reciprocal mechanics. met patient to return to safe squat and lift mechanics to return to prior level activities and work. progressing less than 25% functional deficits per the LEFS. met Target Visit 16 Progress Partially Met PT Goal 2 Goal / Goal Update safely squat and lift 30lbs from floor to waist Target Visit 16 Progress Not Met
--- NOTE | 2025-02-27 13:54 | PTOPDC ---
Assessment and note entered by JT File, PT Evaluation Information Assessment Status Discharge Diagnosis s/p L hip labral repair ICD-10 Condition Codes (PT) Pain in left hip M25.552,Encounter for other orthopedic aftercare Z47.89 Onset 01/10/25 Subjective Information patient reports she feels Good today. she reports she has no pain today. she reports she did have one quick bout of pain when getting out of the car quickly over the weekend, but it went away quickly. Reported Pain Level Pain Score 0: Self Report Assessment PT Clinical Summary ms. reese presents to skilled PT services for her 14th skilled PT visit following L hip surgery. she has reached the end of her insurance approval as of this date. she reports no pain, displays improved rom, and continues to improve in strength of the L hip. she will DC skilled PT today, and continue HEP independent at home. Plan of Care PT Services Indicated Yes
== END 2025-02-27 18:14 | disposition home or self-care (01) ==
LOC: CHSPT 13:36
DX: M25.552 Pain in left hip (principal)
CPT/HCPCS: 97110; 97112; 97150; 97161; 97530

== ENCOUNTER 2025-02-01 12:10 | Outpatient (CLI) | payer OTHER, SELFPAY ==
--- NOTE | ~2025-02-01 | XR_ITS ---
EXAMINATION: XR hip LT 2V w AP pelvis, 02/01/2025 12:15 CDT HISTORY: Orthopedic aftercare COMPARISON: No comparisons available. Findings: No acute fracture or malalignment. No significant degenerative changes. Soft tissues unremarkable. Impression: No acute fracture or malalignment. Reviewed, dictated and finalized at location [facility]. Impression: No acute fracture or malalignment.
== END 2025-02-01 12:11 | disposition home or self-care (01) ==
DX: Z47.89 Encounter for other orthopedic aftercare (principal)
CPT/HCPCS: 73502

== ENCOUNTER 2025-05-04 13:15 | Outpatient (CLI) | payer OTHER, SELFPAY ==
--- NOTE | ~2025-05-04 | US_ITS ---
EXAMINATION: US pelvic complete w TV, 05/04/2025 13:20 RN INFORMATICS HISTORY: DYSMENORRHEA Comparison: None Technique: Dietrich-scale and color Doppler images were obtained. Findings: Uterus: Uterus anteverted 6.7 x 3.5 x 3.1 cm. . Endometrium 5.8 mm. Right Ovary:Right ovary 3.2 x 1.7 x 3 cm, no adnexal mass, normal flow. Left Ovary: Left ovary not identified due to bowel gas. Free Fluid: None Impression: No etiology to explain the patient's symptoms. Left ovary not identified Reviewed, dictated and finalized at location P. INFORMATICS Impression: No etiology to explain the patient's symptoms. Left ovary not identified
--- OUTSIDE RECORDS SUMMARY | 2025-05-04 14:16 | XMS_ITS | Clinical Summary ---
Author Organization [facility] Address [address] [place] [phone] Care Team Providers Care Senior Applications Engineer Name Role Phone Faye Franco MD Primary Care Provider [phone] Allergies Active Allergy Reactions Criticality Noted Date Comments Hydrocodone Itching,Nausea & Vomiting Low 12/28/2024 Tolerated Oxycodone without difficulty Medications ALPRAZolam (XANAX) 0.5 mg tablet Take 1 tablet (0.5 mg total) by mouth 3 (three) times a day as needed for anxiety 07/15/19 23 Active Vyvanse 40 mg capsuleIndications :Attention-Deficit Hyperactivity Disorder Take 1 capsule (40 mg total) by mouth every morning 05/27/19 24 Active drospirenone-ethin yl estradioL (ROBBIE,OCELLA) 3-0.03 mg per tabletIndications: Contraception Take 1 tablet by mouth sludge control attendant before breakfast 09/25/19 24 Active buPROPion XL (WELLBUTRIN XL) 300 mg 24 hr tabletIndications: Anxiety with Depression Take 1 tablet (300 mg total) by mouth every morning 03/23/20 24 Active spironolactone (ALDACTONE) 100 mg tabletIndications: skin health Take 1 tablet (100 mg total) by mouth daily before breakfast 04/28/20 24 Active clindamycin (CLEOCIN T) 1 % lotionIndications: Acne Rosacea Apply 1 Application topically as needed 07/13/19 25 Active valACYclovir (VALTREX) 1 gram tabletIndications: Skin/Soft Tissue Infection,cold sores Take 1 tablet (1,000 mg total) by mouth as needed 07/23/19 25 Active aspirin 81 mg enteric coated tabletIndications: prevention of thrombosis Take 1 tablet (81 mg total) by mouth 2 (two) times a day for 28 days 56 tablet 01/11/20 25 Active senna-docusate (PERICOLACE) 8.6-50 mg Take 1 tablet by mouth 2 (two) times a day for 14 days 28 tablet 01/11/20 25 Active oxyCODONE-acetamin ophen (PERCOCET) 5-325 mg per tabletIndications: Pain Take 1 tablet by mouth every 4 (four) hours as needed for pain 30 tablet 01/24/20 25 Active ondansetron ODT (ZOFRAN-ODT) 4 mg disintegrating tablet Take 1 tablet (4 mg total) by mouth every 6 (six) hours as needed for nausea or vomiting 20 tablet 01/24/20 25 Active Active Problems Problem Noted Date Diagnosed Date Anxiety and depression 02/06/2025 Cellulitis 02/06/2025 Labral tear of hip, degenerative 01/10/2025 Tear of left acetabular labrum 07/25/2024 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 Tear of right acetabular labrum 12/07/2023 Femoroacetabular impingement of right hip 2023 Encounters Date Type Department Care Team Description 05/01/2025 7:30 AM PLASTICS PLATER [facility] Orthopaedic Surgery [address] [place] [address] [place] [phone] Gasper Sun MD Follow-up examination following surgery (Primary Dx) 02/27/2025 Orders Only [facility] Medicine Orthopaedic Surgery [address] [place] [phone] Gasper Sun MD Orthopedic aftercare 02/06/2025 8:10 AM CDT Telemedicine [facility] Medicine Orthopaedic Surgery [address] [place] [address] [phone] Gasper Sun MD Follow-up examination following surgery (Primary Dx) 02/02/2025 1:46 PM CDT - 02/02/2025 11:59 PM CDT Hospital Encounter [facility] [address] [place] [address] Discharge Disposition: Discharge to home or self care from Last 3 Months Surgical History Surgery Date Site/Laterality Comments FLUORO GUIDED ASPIRATION OR INJECTION LARGE JOINT BILATERAL 12/29/2022 Bilateral FLUORO GUIDED ASPIRATION OR INJECTION LARGE JOINT BILATERAL 07/17/2023 Bilateral HIP SURGERY 05/18/2023 - 05/17/2024 Medical History Medical History Date Comments Depression Substance abuse (HCC) Anxiety Family History Medical History Relation Name Comments Obesity Father Roman Foster Diabetes Father's Brother Odell Foster Depression Father's Sister Candis Dahl Obesity Mother Junaid Foster Arthritis Paternal Grandmother Mariam Foster Depression Paternal Grandmother Mariam Foster Hearing loss Paternal Grandmother Mariam Foster Hypertension Paternal Grandmother Mariam Foster Vision loss Paternal Grandmother Mariam Foster Depression Sister Bella Foster Obesity Sister Bella Foster Anesthesia problems Neg Hx Relation Name Status Comments Father Roman Foster Alive Father's Brother Odell Foster Alive Father's Sister Candis Araizahl Alive Mother Junaid Foster Alive Paternal Grandmother Mariam Foster Alive Sister Bella Foster Alive Social History Tobacco Use Types Packs/Day Years Used Date Smoking Tobacco: Every Day Vaping Passive Smoke Exposure: Never Smokeless Tobacco: Never Tobacco Cessation:Ready to Q uit: Not Asked; Counseling Given: Not Answered Alcohol Use Standard Drinks/Week Comments Yes 1 (1 standard drink = 0.6 oz pur e alcohol) AUDIT-C Answer Date Recorded Q1: How often do you have a drink containing alc ohol? 2-4 times a month 01/10/2025 Q2: How many drinks containi ng alcohol do you have on a typical day when you are drinking? 1 or 2 01/10/2025 Q3: How often do you have si x or more drinks on one occasion? Never 01/10/2025 Personal Safety Answer Date Recorded Have you ever been in or are you currently in a harmful physical or emotional relationship or is someone making you feel afraid or unsafe? Denies 01/10/2025 Comments No Sex and Gender Information Value Date Recorded Sex Assigned at Not on file Legal Sex Female 2:30 PM CDT Gender Identity Female 09/15/2022 9:45 PM CDT Sexual Orientation Bisexual 09/15/2022 9: 45 PM CDT Last Filed Vital Signs Vital Sign Reading Time Taken Comments Blood Pressure 112/66 01/10/2025 3:50 PM CDT Pulse 80 01/10/2025 3:50 PM CDT Temperature 36.9 C (98.4 F) 01/10/2025 11:05 AM CDT Respiratory Rate 13 01/10/2025 3:50 PM CDT Oxygen Saturation 99% 01/10/2025 3:50 PM CDT Inhaled Oxygen Concentration - - Weight 65.1 kg (143 lb 9.6 oz) 01/10/2025 9:07 A M CDT Height 172.7 cm (5' 8) 01/10/2025 9:07 AM CDT Body Mass Index 21.83 01/10/2025 9:07 AM CDT Plan of Treatment Health Maintenance Due Date Last Done Comments Cervical Cancer Screening 1999 Depression Screening 1999 Hepatitis C Screening 1999 DTaP/Tdap/Td Vaccine (6 - Tdap) 2010 03/01/2004, 12/18/2000, 1999, Additional history exists Varicella Vaccines (1 of 2 - 13+ 2-dose series) 2012 HPV Vaccines (1 - 3-dose series) 2014 Regular Well Visit/Exam 18-64 2017 Pneumococcal vaccine <65 (1 of 2 - PCV) 2018 Influenza Vaccine (#1) 2025 Hepatitis B Screening Completed 12/18/2000 , 1999, 1999 Medical Devices Implanted Type Area Bean Dumper Device Identifier Shelf Expiration Date Model / Serial / Lot [employer] Prospect Suture Microraptor Regenesorb Knotless Rigid [id number] - [id number] Implanted:Qty: 1 on 02/17/2024 at [facility] Right: Hip [employer] 07/16/2026 [id number] / / [id number] [employer] Suture Microraptor Regenesorb Knotless Rigid [id number] - [id number] Implanted:Qty: 1 on 02/17/2024 at [facility] Right: Hip [employer] 08/24/2026 [id number] / / [id number] [employer] Prospect Suture Microraptor Regenesorb Knotless Rigid [id number] - [id number] Implanted:Qty: 1 on 01/10/2025 at [facility] Left: Hip [employer] 07/07/2027 [id number] / / [id number] [employer] Prospect Suture Microraptor Regenesorb Knotless Rigid [id number] - [id number] Implanted:Qty: 1 on 01/10/2025 at [facility] Left: Hip [employer] 07/28/2027 [id number] / / [id number] [employer] Prospect Suture Microraptor Regenesorb Knotless Rigid [id number] - [id number] Implanted:Qty: 1 on 01/10/2025 at [facility] Left: Hip [employer] 07/28/2027 [id number] / / [id number] Procedures Procedure Name Priority Date/Time Associated Diagnosis Comments XR HIP LEFT W PELVIS 2 OR 3 VIEWS Schedule Routine, Read Routine (OP Routine) 02/02/2025 3:06 PM CDT Orthopedic aftercare XR TRANSFER OF OUTSIDE FILMS Routine 02/02/2025 1:46 PM CDT from Last 3 Months Results * XR Hip Left 2 or 3 Views W Pelvis (02/02/2025 3:06 PM CDT) Anatomical Region Laterality Modality Lower Extremities, Hip, Pelvis Left R adiographic Imaging Gasper Sun MD IMG XR PROCEDURES Final Resul t * XR Outside Reference (02/02/2025 1:46 PM CDT) Impressions [facility] - 02/02/2025 1:46 PM CDT These images are for Reference purposes only and have not been reviewed by [facility]. There will be no report generated by a [facility]iologist. Narrative [facility] - 02/02/2025 1:46 PM CDT EXAMINATION: Images For Reference Purposes Only Gasper Sun MD IMG XR PROCEDURES Final Resul t [facility] from Last 3 Months Insurance [facility] Care Teams Senior Applications Engineer Relationship Specialty Start Date End Date Faye Franco MD [address] [place] [address] PCP - General Family Medicine 09/04/22
--- OUTSIDE RECORDS SUMMARY | 2025-05-04 14:16 | XMS_ITS | Clinical Summary ---
Author Organization [facility] Address [address] [place] [address] Care Team Providers Care Web Database Developer Name Role Phone No, Pcp ECCLESIASTICAL WORKER Primary Care Provider Unavailabl e Social History Tobacco Use Types Packs/Day Years Used Date Smoking Tobacco: Never Assessed Comments Unknown Sex and Gender Information Value Date Recorded Sex Assigned at Not on file Legal Sex Female 1:37 PM EDT Gender Identity Not on file Sexual Orientation Not on file Plan of Treatment Not on file Medical Devices Not on file Insurance [employer] Care Teams Web Database Developer Relationship Specialty Start Date End Date No, Pcp, ECCLESIASTICAL WORKER N/A Do not use PCP - General Family Medicine 01/24/20
== END 2025-05-04 13:16 | disposition home or self-care (01) ==
PROVIDERS: PCP Nurse Practitioner Family; Visit Provider Nurse Practitioner Family
DX: N94.6 Dysmenorrhea, unspecified (principal)
CPT/HCPCS: 76830; 76856